=== PATIENT | female | born 1990 | race Caucasian/White ===

== ENCOUNTER 2016-09-16 16:20 | Observation (INO) | payer BC ==
[2016-09-16 16:37] VITALS: BMI 50.8
[2016-09-16 16:56] LABS: ALL NEG? NO
[2016-09-16 17:01] LABS: AUTOMATED BASOPHIL 0.7 % (0-2); AUTOMATED LYMPH 24.7 % (17-44); AUTOMATED MONOCYTE 4.9 % (3-10); AUTOMATED NEUTROPHIL 67.7 % (45-76); MPV 8.2 fL (7.4-10.4)
[2016-09-16 17:04] LABS: MDMA* NEG (NEGATIVE); METHAMPHETAMINES NEG (NEGATIVE); OXYCODONE NEG (NEGATIVE)
[2016-09-16 17:06] LABS: LEUKOCYTES/URINE NEG (NEGATIVE); NITRITE/URINE NEG (NEGATIVE); RBC/URINE 0-2 (0-5); URINE OCCULT BLOOD 3+ (NEG/TRACE); WBC/URINE 0-2 (0-5)
[2016-09-16 17:09] LABS: BLOOD UREA NITROGEN 15 MG/DL (7-17); CALCIUM 8.9 MG/DL (8.4-10.2); CALCULATED OSMOLALITY 268 MOs/Kg (270-290); CHLORIDE 104 mEq/L (98-107); ETOH-MGDL < 10 mg/dL; GLUCOSE 88 MG/DL (70-99); SODIUM LEVEL 139 mEq/L (137-146); TOTAL PROTEIN 7.7 G/DL (6.3-8.2)
--- NOTE | 2016-09-16 19:27 | EDPRACDOC ---
- General Information Chief Complaint: Psychiatric Illness Stated Complaint: SI Time Seen by Provider: 09/16/16 19:15 Information Source: Patient Mode of Arrival: Car Home Medications: Home Medications Alprazolam [Xanax] 0.5 mg PO Q8H PRN 09/16/16 Sertraline HCl [Zoloft] 50 mg PO DAILY 09/16/16 Allergies/Adverse Reactions: Allergies Allergy/AdvReac Type Severity Reaction Status Date / Time venom-honey bee Allergy Anaphylaxis Verified 06/10/16 08:52 [bee venom (honey bee)] * - History of Present Illness Onset: [employer] HPI: PT PRESENTS WITH THOUGHTS OF SI. STATES SHE ATTEMPTED SUICIDE ON MONDAY BY TAKING MULTIPLE LORTAB AND XANAX. STATES SHE CONTINUES TO HAVE THOUGHT SO SUICIDE. PT HAS ATTEMPTED SUICIDE ON MULTIPLE OCCASIONS. Reason for Seeking Treatment: Self-referral Presents With: Reports: Suicidal Ideation Expresses: Reports: Suicidal Intent, Suicidal Plan Suicidal Plan: Reports: Overdose Suicidal Attempt: Reports: Other Stressors: Reports: None Relevant History: Reports: Suicidal Attempt, Inpatient Treatment, Outpatient Treatment Medication Compliance: Yes Tetanus Up To Date?: Yes Able to Care for Self: No Able to Control Self: No ED Past Medical History - History Reviewed Yes Nurses notes reviewed and agree except as marked - Patient Medical History Psychological History: Denies: Depression Surgical History: Reports: Tonsillectomy/Adnoidectomy - Social Medical History Smoking Status: Never smoker EDM Review of Systems - Review of Systems ROS Negative Except as Marked: Yes All systems reviewed and were negative except as marked - Physical Exam Constitutional: Alert Oriented to: Time, Person, Place Last recorded Vital Signs: Last Vital Signs Temp 98.1 F 09/16/16 16:33 Pulse 83 09/16/16 16:33 Resp 20 09/16/16 16:33 BP 139/73 09/16/16 16:33 Pulse Ox 97 09/16/16 16:33 Oxygen Pulse Oxygen Saturation 97 O2 Device Room Air Oxygen Flow Rate Fraction of Inspired Oxygen ( FIO2) - HEENT Head: Normal ( normocephalic) Eye Exam: Normal (PERRL, EOMI, Sclera white) Oropharynx: Normal (Pharynx:Moist without exudate,Gums-no swelling) Nose: No Symptoms Reported (septum midline) Neck: Normal (FROM, trachea at midline) - Respiratory/Cardiovascular Respiratory: Normal - CTA (BBS clear to auscultation without adventitious sounds ) Cardiovascular: Normal (RRR without murmur, gallop or rub) - GI Auscultation: Normal (NABS) Palpation: Normal (Soft,No rebound or guarding, non distended) Tenderness: Non tender Pendleton's Sign: Negative Rectal Exam: Deferred - Musculoskeletal Back: Normal (Non-Tender) Extremities: Normal (Normal tone, Pulses 2+ No cyanosis or edema, FROM) - Integumentary Skin: Normal, Warm, Dry Lymphatics: Normal (no adenopathy) - Neurologic Memory Impaired: Normal Motor Function: Normal (Normal tone, Pulses 2+ No cyanosis or edema, FROM) Cranial Nerve: Normal (CN II-X11 intact sensation, strength 5/5) Cerebellar: Normal Mood Description: Normal Thought: Coherent Perception: Normal Initial Evaluation Apperance: Neat Attitude: Cooperative Mood: Euthymic Affect: Congruent w/ mood Insight: Good Judgement: Good Memory Description: Intact Recommend /or Refer: Involuntary Commitment - Differential Diagnosis Suicidal - Results 09/16/16 16:44 09/16/16 16:44 WBC 15.4 xk/uL (3.8-10.8) H 09/16/16 16:44 RBC 5.20 xM/uL (4.20-5.40) 09/16/16 16:44 Hgb 14.4 g/dL (12.0-16.0) 09/16/16 16:44 Hct 43.2 % (36-47) 09/16/16 16:44 MCV 83 fL (81-99) 09/16/16 16:44 MCH 27.7 pg (27-32) 09/16/16 16:44 MCHC 33.4 g/dl (33-36) 09/16/16 16:44 RDW 12.3 % (11.5-14.5) 09/16/16 16:44 Plt Count 241 xk/uL (130-400) 09/16/16 16:44 MPV 8.2 fL (7.4-10.4) 09/16/16 16:44 Neut % (Auto) 67.7 % (45-76) 09/16/16 16:44 Lymph % (Auto) 24.7 % (17-44) 09/16/16 16:44 Union % (Auto) 4.9 % (3-10) 09/16/16 16:44 Eos % (Auto) 2.0 % (0-5) 09/16/16 16:44 Baso % (Auto) 0.7 % (0-2) 09/16/16 16:44 Absolute Neuts (auto) 10.32 xk/uL (1.7-8.2) H 09/16/16 16:44 Absolute Lymphs (auto) 3.70 xk/uL (0.65-4.75) 09/16/16 16:44 Sodium 139 mEq/L (137-146) 09/16/16 16:44 Potassium 4.1 mEq/L (3.5-5.1) 09/16/16 16:44 Chloride 104 mEq/L (98-107) 09/16/16 16:44 Carbon Dioxide 22 mMOL/L (22-33) 09/16/16 16:44 Anion Gap 17 mEq/L (8-16) H 09/16/16 16:44 BUN 15 MG/DL (7-17) 09/16/16 16:44 Creatinine 0.80 MG/DL (0.52-1.04) 09/16/16 16:44 Estimated GFR (MDRD) > 60 mL/min (>=60) 09/16/16 16:44 Glucose 88 MG/DL (70-99) 09/16/16 16:44 Calculated Osmolality 268 MOs/Kg (270-290) L 09/16/16 16:44 Calcium 8.9 MG/DL (8.4-10.2) 09/16/16 16:44 Corrected Calcium 9.0 MG/DL (8.4-10.2) 09/16/16 16:44 Total Bilirubin 0.4 MG/DL (0.2-1.3) 09/16/16 16:44 AST 18 IU/L (14-36) 09/16/16 16:44 ALT 28 IU/L (9-52) 09/16/16 16:44 Alkaline Phosphatase 73 IU/L (38-126) 09/16/16 16:44 Total Protein 7.7 G/DL (6.3-8.2) 09/16/16 16:44 Albumin 3.9 G/DL (3.5-5.0) 09/16/16 16:44 Urine Color Pale yellow 09/16/16 16:47 Urine Clarity Clear 09/16/16 16:47 Urine pH 6.0 (5.0-8.0) 09/16/16 16:47 Ur Specific [place] 1.020 (1.003-1.035) 09/16/16 16:47 Urine Protein Neg (NEG/TRACE) 09/16/16 16:47 Urine Glucose (UA) Neg (NEGATIVE) 09/16/16 16:47 Urine Ketones Neg (NEGATIVE) 09/16/16 16:47 Urine Occult Blood 3+ (NEG/TRACE) H 09/16/16 16:47 Urine Nitrite Neg (NEGATIVE) 09/16/16 16:47 Urine Bilirubin Neg (NEGATIVE) 09/16/16 16:47 Urine Urobilinogen <2.0 MG/DL (0-1) 09/16/16 16:47 Ur Leukocyte Esterase Neg (NEGATIVE) 09/16/16 16:47 Urine RBC 0-2 (0-5) 09/16/16 16:47 Urine WBC 0-2 (0-5) 09/16/16 16:47 Ur Epithelial Cells 1+ 09/16/16 16:47 Urine Bacteria Few (NEG/FEW) 09/16/16 16:47 Urine Mucus Occ (NEG/OCC) 09/16/16 16:47 Urine Test Neg (NEGATIVE) 09/16/16 16:47 Urine Opiates Screen Neg (NEGATIVE) 09/16/16 16:47 Ur Oxycodone Screen Neg (NEGATIVE) 09/16/16 16:47 Urine Methadone Screen Neg (NEGATIVE) 09/16/16 16:47 Ur Barbiturates Screen Neg (NEGATIVE) 09/16/16 16:47 Ur Tricyclics Screen Neg (NEGATIVE) 09/16/16 16:47 Ur Phencyclidine Scrn Neg (NEGATIVE) 09/16/16 16:47 Ur Amphetamines Screen Neg (NEGATIVE) 09/16/16 16:47 U Methamphetamines Scrn Neg (NEGATIVE) 09/16/16 16:47 Urine MDMA Screen Neg (NEGATIVE) 09/16/16 16:47 U Benzodiazepines Scrn *positive* (NEGATIVE) H 09/16/16 16:47 Urine Cocaine Screen Neg (NEGATIVE) 09/16/16 16:47 Ur THC Screen Neg (NEGATIVE) 09/16/16 16:47 Plasma/Serum Ethyl Alc % (<0.01) 09/16/16 16:44 Lab Results 09/16/16 09/16/16 09/16/16 16:47 16:47 16:47 WBC RBC Hgb Hct MCV MCH MCHC RDW Plt Count MPV Neut % (Auto) Lymph % (Auto) Union % (Auto) Eos % (Auto) Baso % (Auto) Absolute Neuts (auto) Absolute Lymphs (auto) Sodium Potassium Chloride Carbon Dioxide Anion Gap BUN Creatinine Estimated GFR (MDRD) Glucose Calculated Osmolality Calcium Corrected Calcium Total Bilirubin AST ALT Alkaline Phosphatase Total Protein Albumin Urine Color Pale yellow Urine Clarity Clear Urine pH 6.0 Ur Specific [place] 1.020 Urine Protein Neg Urine Glucose (UA) Neg Urine Ketones Neg Urine Occult Blood 3+ H Urine Nitrite Neg Urine Bilirubin Neg Urine Urobilinogen <2.0 Ur Leukocyte Esterase Neg Urine RBC 0-2 Urine WBC 0-2 Ur Epithelial Cells 1+ Urine Bacteria Few Urine Mucus Occ Urine Test Neg Urine Opiates Screen Neg Ur Oxycodone Screen Neg Urine Methadone Screen Neg Ur Barbiturates Screen Neg Ur Tricyclics Screen Neg Ur Phencyclidine Scrn Neg Ur Amphetamines Screen Neg U Methamphetamines Scrn Neg Urine MDMA Screen Neg U Benzodiazepines Scrn *positive* H Urine Cocaine Screen Neg Ur THC Screen Neg Plasma/Serum Ethyl Alc 09/16/16 09/16/16 16:44 16:44 WBC 15.4 H RBC 5.20 Hgb 14.4 Hct 43.2 MCV 83 MCH 27.7 MCHC 33.4 RDW 12.3 Plt Count 241 MPV 8.2 Neut % (Auto) 67.7 Lymph % (Auto) 24.7 Union % (Auto) 4.9 Eos % (Auto) 2.0 Baso % (Auto) 0.7 Absolute Neuts (auto) 10.32 H Absolute Lymphs (auto) 3.70 Sodium 139 Potassium 4.1 Chloride 104 Carbon Dioxide 22 Anion Gap 17 H BUN 15 Creatinine 0.80 Estimated GFR (MDRD) > 60 Glucose 88 Calculated Osmolality 268 L Calcium 8.9 Corrected Calcium 9.0 Total Bilirubin 0.4 AST 18 ALT 28 Alkaline Phosphatase 73 Total Protein 7.7 Albumin 3.9 Urine Color Urine Clarity Urine pH Ur Specific [place] Urine Protein Urine Glucose (UA) Urine Ketones Urine Occult Blood Urine Nitrite Urine Bilirubin Urine Urobilinogen Ur Leukocyte Esterase Urine RBC Urine WBC Ur Epithelial Cells Urine Bacteria Urine Mucus Urine Test Urine Opiates Screen Ur Oxycodone Screen Urine Methadone Screen Ur Barbiturates Screen Ur Tricyclics Screen Ur Phencyclidine Scrn Ur Amphetamines Screen U Methamphetamines Scrn Urine MDMA Screen U Benzodiazepines Scrn Urine Cocaine Screen Ur THC Screen Plasma/Serum Ethyl Alc - Departure Disposition: Admit to Condition: Stable Final Diagnosis: Moderate major depression, single episode Suicide Qualifiers: Encounter type: initial encounter Qualified Code(s): X83.8XXA - Intentional self-harm by other specified means, initial encounter Education/Counseling Given To: Patient Education/Counseling Given Regarding: Diagnosis, Treatment, Prognosis, Follow Up
[2016-09-16] MEDS ORDERED: ACETAMINOPHEN 325 MG/TAB TABLET PO PRN (19:42)
[2016-09-16] MEDS ORDERED: ONDANSETRON HCL 4 MG ODT TAB PO PRN (19:42)
[2016-09-16] MEDS ORDERED: LORAZEPAM 1 MG TAB PO PRN (19:42)
[2016-09-16] MEDS ORDERED: TEMAZEPAM 15 MG CAP PO PRN (19:42)
[2016-09-16] MEDS ORDERED: MAGNESIUM HYDROXIDE 30 ML BOTTLE PO PRN (19:42)
[2016-09-16] MEDS ORDERED: GUAIFENESIN 200 MG/10 ML UDC PO PRN (19:42)
[2016-09-16] MEDS ORDERED: Docusate Sodium 100 MG CAP PO PRN (19:42)
[2016-09-16] MEDS ORDERED: IBUPROFEN 400 MG TAB PO PRN (19:42)
[2016-09-16] MEDS ORDERED: NICOTINE 21 MG PATCH TOP SCH (20:00)
--- NOTE | 2016-09-18 08:18 | TUDEPART ---
- Patient Problems (1) Moderate major depression, single episode Acute Time Seen By Provider: 08:03 Discussion of OBS Stay: No changes in clinical status or new information from previous documentation. Vital Signs: Temp:98.4 F HR: 57 BP: 101/56 RR: 20 Pox: 93%. Continue with current plan. General: Pleasant female] No acute distress. Neuro: Alert Oriented, calm and cooperative HEENT: Normocephalic atraumatic. Sclerae nonicteric. Extraocular movements intact. Oral mucosa pink and moist. Neck: Supple. Nontender. Good range of motion. No masses. Trachea is midline. No cervical adenopathy. Lungs: Clear to auscultation. No rhonchi or wheezing. Heart: Regular rate and rhythm. No murmur. Abdomen: Soft, nontender, nondistended. No hepatosplenomegaly. No abdominal wall defects or masses. No guarding or rebound. Extremities: no cyanosis clubbing or edema. No palpable deformities. Skin: Warm and dry, no rashes Yes I personally saw and evaluated the patient. Disposition: [place]OLUNTARY TO [place] Condition: Stable - Physical Exam Constitutional: Alert Oriented to: Time, Person, Place Last recorded Vital Signs: Last Vital Signs Temp 98.4 F 09/17/16 06:06 Pulse 57 L 09/18/16 06:36 Resp 20 09/18/16 06:36 BP 101/56 L 09/18/16 06:36 Pulse Ox 93 09/18/16 06:36 Oxygen Pulse Oxygen Saturation 93 O2 Device Room Air Oxygen Flow Rate Fraction of Inspired Oxygen ( FIO2) - HEENT Head: Normal ( normocephalic) Eye Exam: Normal (PERRL, EOMI, Sclera white) Oropharynx: Normal (Pharynx:Moist without exudate,Gums-no swelling) Nose: No Symptoms Reported (septum midline) - Respiratory/Cardiovascular Respiratory: Normal - CTA (BBS clear to auscultation without adventitious sounds ) Cardiovascular: Normal (RRR without murmur, gallop or rub) - GI Auscultation: Normal (NABS) Palpation: Normal (Soft,No rebound or guarding, non distended) Tenderness: Non tender Pendleton's Sign: Negative Rectal Exam: Deferred - Musculoskeletal Back: Normal (Non-Tender) Extremities: Normal (Normal tone, Pulses 2+ No cyanosis or edema, FROM) - Integumentary Skin: Normal, Warm, Dry Lymphatics: Normal (no adenopathy) - Neurologic Memory Impaired: Normal Motor Function: Normal (Normal tone, Pulses 2+ No cyanosis or edema, FROM) Cranial Nerve: Normal (CN II-X11 intact sensation, strength 5/5) Cerebellar: Normal Mood Description: Normal Thought: Coherent Perception: Normal
[2016-09-18 08:34] VITALS: PULSE 86; TEMP 98.6
[2016-09-18 10:03] VITALS: BP 101/56
== END 2016-09-18 08:20 ==
LOC: ED 16:20 → TUOBSINP 19:41 → EDINP 09-17 19:03 → TUOBSINP 09-18 07:13
PROVIDERS: ADMIT Nurse Practitioner Family; ATTEND Nurse Practitioner Family
DX: F32.1 Major depressive disorder, single episode, moderate (principal); X83.8XXA Intentional self-harm by other specified means, initial encounter; Z79.899 Other long term (current) drug therapy
CPT/HCPCS: 36415; 80053; 80307; 81001; 81025; 85025; 86592; 99284; G0378; J3490